=== PATIENT | female | born 1940 | race Caucasian/White ===

== ENCOUNTER 2017-10-01 09:24 | Emergency (ER) | payer OTHER ==
[~2017-10-01] VITALS: Ht 154.9 cm; Wt 80.0 kg
[~2017-10-01 09:24] MED LIST: ALEVE220 M1 PO; AMITRIPTYLIN25 MG OR; AMITRIPTYLIN50 MG OR; AMITRIPTYLIN50 MG PO; AMOXICILLIN500 MG PO; ASPIRIN EC81 MG PO; BABY ASPIRIN81 MG OR; C 250 PO; CALCIUM/D250 MG PO; CALCIUM500 MG/D OR; COD LIVER O1 OR; COD LIVER OIL PO; COVERSYL PO; DIGITEK0.25 MG OR; DIGOXIN0.125 MG PO; DIGOXIN0.25 MG PO; ESTRADERM0.05 MG TD; ESTRADERM0.1 MG TD; FA-8800 MCG PO; FLEXERIL OR; FLONASE NASAL50 MCG; FLONASE0.05 %; FLORASTOR250 M1 PO; FOLIC ACID400 MC1 OR; HYDROCHLOROT12.5 MG PO; LACTULOSE PO; LIPITOR40 MG OR; LIPITOR40 MG PO; MAALOX/BEN PO; MAGNESIUM400 MG PO; MELADOX3 MG PO; MELATONIN3 MG OR; MELOXICAM15 MG OR; MELOXICAM15 MG PO; MERIBIN5 MG OR; MERIBIN5 MG PO; METFORMIN500 MG OR; METFORMIN500 MG PO; NAPROSYN500 MG OR; NYSTATIN100000 M1 MT; NYSTATIN100000 M1 PO; OMEGA-3 FISH1000 MG PO; OMEGA-31000 MG OR; OMEPRAZOLE20 M1 PO; QVAR40 MCG IN; SYNTHROID75 MCG OR; SYNTHROID75 MCG PO; ULTRAM ER100 MG OR; VENTOLIN HFA IN; VERAPAMIL240 M1 OR; VERAPAMIL240 M1 PO; VITA PO; VITAMIN A8000 UNIT OR; VITAMIN C1000 MG OR; VITAMIN D1000 UNI1 PO; VITAMIN E400 UNIT OR; VITAMIN E400 UNIT PO; ZINC50 M1 PO; [UNRECOGNIZED DRUG - CODE]; [UNRECOGNIZED DRUG - OTHER] OR
[2017-10-01] MEDS ORDERED: TORADOL PO (11:01)
[2017-10-01 11:15] VITALS: BP 124/60
== END 2017-10-01 11:15 | disposition home or self-care (01) | DRG 563 ==
LOC: ED 09:24
DX: S93.402A Sprain of unspecified ligament of left ankle, initial encounter (principal); X50.1XXA Overexertion from prolonged static or awkward postures, initial encounter; Y93.53 Activity, golf; Y92.39 Other specified sports and athletic area as the place of occurrence of the external cause

== ENCOUNTER 2019-08-14 14:32 | Observation (INO) | payer OTHER ==
[~2019-08-14] VITALS: Ht 154.9 cm; Wt 70.4 kg
[~2019-08-14 14:32] MED LIST changes: +ALLERGY NA50 MCG/ACT NAB; +ATORVASTATIN CA40 MG PO; -FLONASE NASAL50 MCG; -LIPITOR40 MG PO; +TORADOL PO
[2019-08-14] MEDS ORDERED: SYNTHROID88 MCG PO (15:13)
[2019-08-14] MEDS ORDERED: METOPROL TAR25 MG PO (15:15)
[2019-08-14] MEDS ORDERED: DILT-XR180 MG PO (15:17)
[2019-08-14] MEDS ORDERED: XARELTO20 MG PO (15:17)
[2019-08-14] MEDS ORDERED: OMEPRAZOLE20 MG PO (15:18)
[2019-08-14] MEDS ORDERED: SYMBICORT IN (15:24)
[2019-08-14] MEDS ORDERED: [UNRECOGNIZED DRUG - OTHER] IN (15:24)
[2019-08-14] MEDS ORDERED: MELATONIN10 MG PO (15:28)
[2019-08-14] MEDS ORDERED: VITAMIN C1000 MG PO (15:29)
[2019-08-14] MEDS ORDERED: TURMERIC500 MG PO (15:30)
[2019-08-14] MEDS ORDERED: OMEGA 31200 MG PO (15:31)
[2019-08-14] MEDS ORDERED: CALCIUM600 M1 PO (15:33)
[2019-08-14] MEDS ORDERED: VITAMIN D-32000 UNI1 PO (15:33)
[2019-08-14] MEDS ORDERED: B-121000 MC4 PO (15:37)
[2019-08-14] MEDS ORDERED: [UNRECOGNIZED DRUG - OTHER] PO (15:38)
[2019-08-14] MEDS ORDERED: [UNRECOGNIZED DRUG - OTHER] PO (15:40)
[2019-08-14] MEDS ORDERED: SPIRIVA HANDIHALER IN (15:40)
[2019-08-14 16:41] LABS: HEMOGLOBIN 11.8 g/dl (12.0-16.0); IMMATURE GRANULOCYTES 0.3 % (0.0-5.0); MEAN CELL VOLUME 95.2 fL CALC (80.0-100.0); MEAN CORPUSCULAR HGB 31.2 pG CALC (26.0-32.0); MEAN CORPUSCULAR HGB CONC 32.8 g/L CALC (32.0-36.0); NEUT# 7.7 thou/uL (2.00-7.15); RED BLOOD COUNT 3.78 mill/uL (4.20-5.60); RED CELL DISTRI WIDTH 12.5 % (11.5-15.5)
[2019-08-14 17:14] LABS: ALBUMIN 4.2 g/dL (3.2-5.0); ALKALINE PHOSPHATASE 86 u/l (38-126); ANION GAP 14 (6-22 (CALC)); BUN 21 mg/dL (8-23); BUN/CREATININE RATIO 22 (12-20 (CALC)); CARBON DIOXIDE 24 mmol/l (22-30); CHLORIDE 105 mmol/l (95-108); GFR 54 ML/MIN (>=60 (CALC)); GFR FOR AFR.AMER. > 60 ML/MIN (>=60 (CALC)); POTASSIUM 4.4 mmol/l (3.5-5.1); SGOT/AST 18 u/l (9-36); SODIUM 138 mmol/l (137-146); TOTAL PROTEIN 7.3 g/dL (6.3-8.2)
[2019-08-14 17:20] LABS: BILIRUBIN, TOTAL 0.3 mg/dL (0.0-1.4)
[2019-08-14 17:22] LABS: ACT PARTIAL THROMBO TIME 28.1 SECONDS (20.0-32.5); PROTHROMBIN TIME 10.4 SECONDS (9.0-12.5)
[2019-08-14 19:20] VITALS: BP 151/73
[2019-08-14 23:00] VITALS: BP 137/59
[2019-08-15] VITALS (7 sets, daily range): BP systolic 90–143; BP diastolic 46–76
[2019-08-15 05:43] LABS: HEMATOCRIT 35.4 % (37.0-47.0); HEMOGLOBIN 11.4 g/dl (12.0-16.0); IMMATURE GRANULOCYTES 0.4 % (0.0-5.0); MEAN CELL VOLUME 95.4 fL CALC (80.0-100.0); MEAN CORPUSCULAR HGB 30.7 pG CALC (26.0-32.0); MEAN CORPUSCULAR HGB CONC 32.2 g/L CALC (32.0-36.0); NEUT# 2.45 thou/uL (2.00-7.15); RED BLOOD COUNT 3.71 mill/uL (4.20-5.60); RED CELL DISTRI WIDTH 12.4 % (11.5-15.5)
[2019-08-15 05:59] LABS: ANION GAP 12 (6-22 (CALC)); BUN 17 mg/dL (8-23); BUN/CREATININE RATIO 18 (12-20 (CALC)); CARBON DIOXIDE 25 mmol/l (22-30); CHLORIDE 107 mmol/l (95-108); GFR 54 ML/MIN (>=60 (CALC)); GFR FOR AFR.AMER. > 60 ML/MIN (>=60 (CALC)); POTASSIUM 4.2 mmol/l (3.5-5.1); SODIUM 139 mmol/l (137-146)
== END 2019-08-15 14:07 | disposition home or self-care (01) | DRG 605 ==
LOC: ED 14:32 → ED-I 15:25 → ICU 17:38 → ED 17:38 → ICU 08-15 14:07
PROVIDERS: ADMIT Internal Medicine; ATTEND Internal Medicine
DX: S00.03XA Contusion of scalp, initial encounter (principal); I10 Essential (primary) hypertension; I48.91 Unspecified atrial fibrillation; E11.9 Type 2 diabetes mellitus without complications; E03.9 Hypothyroidism, unspecified; M19.90 Unspecified osteoarthritis, unspecified site; W18.30XA Fall on same level, unspecified, initial encounter; Y92.520 Airport as the place of occurrence of the external cause; Z79.84 Long term (current) use of oral hypoglycemic drugs; Z95.2 Presence of prosthetic heart valve; Z87.891 Personal history of nicotine dependence; Z79.01 Long term (current) use of anticoagulants